=== PATIENT | female | born 1990 | race Caucasian/White ===

== ENCOUNTER → 2020-08-15 08:22 | Outpatient (CLI) | payer OTHER, SELFPAY ==
--- NOTE | ~2020-08-15 | US_ITS ---
US breast LT complete DATE: 08/15/2020 08:47 INDICATION: Breast lumps TECHNIQUE: Real-time imaging of flow imaging of the complete left breast COMPARISON: 01/27/2018 left complete breast ultrasound 02/22/2019 bilateral complete breast ultrasound FINDINGS: Again noted are multiple cysts scattered in the left breast, the largest measuring up to 2. 2 x 2.1 x 1.1 cm, situated at subareolar area. There is through transmission posterior enhancement. There is one hypoechoic circumscribed parallel lesion measuring approximately 5 mm maximal dimension at 10:00 7 cm from the nipple, without internal vascularity, with mild posterior enhancement, no susp icious shadowing, likely a complicated cyst or small benign fibroadenoma; six-month targeted ultrasou nd follow-up at this location is recommended.. IMPRESSION: BI-RADS Category 3: Probably benign Recommendation: 6 month follow-up targeted ultrasound follow-up of left breast at 10:00 7 cm from nip ple Reviewed, dictated and finalized at [facility]. Reviewed, dictated and finalized at [facility]. 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
== END ==
PROVIDERS: Visit Provider Student in an Organized Health Care Education/Training Program
DX: N63.0 Unspecified lump in unspecified breast (principal); R92.8 Other abnormal and inconclusive findings on diagnostic imaging of breast
CPT/HCPCS: 76641

== ENCOUNTER → 2021-03-10 08:48 | Outpatient (CLI) | payer OTHER, SELFPAY ==
--- NOTE | ~2021-03-10 | US_ITS ---
US breast LT limited DATE: 03/10/2021 09:02 INDICATION: Left breast 10:00 sonographic lesion six-month follow-up TECHNIQUE: High-resolution ultrasound imaging and color flow imaging targeted to 10:00 7 cm from nipp le COMPARISON: August 15, 2020 left complete ultrasound 02/22/2019 bilateral complete breast ultrasound FINDINGS: At 10:00 7 cm from the nipple there is an irregular hypoechoic area measuring up to 4.6 x 5 .5 x 6 mm dimension, changed in appearance since August 15, 2020, at which time the margins appeare d smooth. No internal vascularity is noted. However, given the change in appearance and irregular mar gins since 10/13/2020, ultrasound-guided biopsy is recommended. IMPRESSION: Irregular 6 mm hypoechoic lesion at 10:00 7 cm from nipple; ultrasound-guided biopsy is r ecommended BI-RADS Category 4: Suspicious abnormality; biopsy should be considered Dr. Platt telephoned the report and ultrasound-guided biopsy recommendation on 03/10/[address] 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 Reviewed, dictated and finalized at [facility]. Reviewed, dictated and finalized at [facility]. IMPRESSION: Irregular 6 mm hypoechoic lesion at 10:00 7 cm from nipple; ultraso und-guided biopsy is recommended BI-RADS Category 4: Suspicious abnormality; biopsy should be considered Dr. Platt telephoned the report and ultrasound-guided biopsy recommendation on at [address] 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
== END ==
PROVIDERS: Visit Provider Student in an Organized Health Care Education/Training Program
DX: N63.22 Unspecified lump in the left breast, upper inner quadrant (principal)
CPT/HCPCS: 76642

== ENCOUNTER 2022-02-05 09:02 | Outpatient (CLI) | payer OTHER, SELFPAY ==
--- NOTE | ~2022-02-05 | US_ITS ---
EXAMINATION: US pelvic complete w TV DATE: 02/05/2022 10:00 INDICATION: Irregular periods. Comparison:No prior studies for comparison. TECHNIQUE: Multiple transabdominal and endovaginal sonographic images of the pelvis performed. FINDINGS: The uterus measures 7.4 x 3.6 x 5.5 cm. The endometrial complex measures 1.2 cm. The right ovary measures 4.6 x 2.3 x 2.8 cm and the left ovary measures 4.4 x 2.2 x 2.1 cm. There ar e small follicles in each ovary. Normal doppler signal in both ovaries. There is no free fluid in the pelvis. There are no abnormal masses seen on either side. IMPRESSION: 1. Mild endometrial thickening measuring 12 mm. Reviewed, dictated and finalized at [facility].
== END 2022-02-05 09:03 | disposition home or self-care (01) ==
PROVIDERS: PCP Student in an Organized Health Care Education/Training Program; Visit Provider Student in an Organized Health Care Education/Training Program
DX: N92.6 Irregular menstruation, unspecified (principal); R93.89 Abnormal findings on diagnostic imaging of other specified body structures
CPT/HCPCS: 76830; 76856